=== PATIENT | male | born 1970 | race Caucasian/White ===

== ENCOUNTER → 2018-11-05 | Day surgery (SDC) | payer OTHER ==
[~2018-11-05] MED LIST: ALIGN4 MG PO; FENTANYL CITRATE/PF 100MCG/2 ML INJ ONE; HYDROCODONE/APAP 5MG-325MG TAB ONE; LIDOCAINE HCL 2% LOCAL INJ 5 ML SDV VIAL INJ ONE; MIDAZOLAM HCL 2 MG/2 ML VIAL ONE; MULTI-VITAMIN1 EACH PO; PROPOFOL IV EMULSION 10 MG/ML 50 ML VIAL ONE; metamucil PO
--- OUTSIDE RECORDS SUMMARY | 2018-11-05 05:11 | XMS REPORT | Summary of Care ---
Author Author [facility] Primary [facility] Primary [facility] Address Unknown Phone Unavailable Encounter SHILPI Correa(ADILENE) [id number] Date(s): 08/27/18 - 08/27/18 [facility] [address] [place] [address]- [phone] Discharge Disposition: Home or Self Care Attending Physician: Brenda Manriquez MD Vital Signs Most recent to 1 oldest [Reference Range]: Height 175.26 cm (08/27/18 8:37 AM) Temperature Oral 98.3 DegF [96.4-99.1 DegF] (08/27/18 8:37 AM) Blood Pressure 110/74 mmHg [90-140/60-90 mmHg] (08/27/18 8:37 AM) Peripheral Pulse 73 bpm Rate [60-100 bpm] (08/27/18 8:37 AM) Weight 75.909 kg (08/27/18 8:37 AM) Body Mass Index 24.71 m2 (08/27/18 8:37 AM) Problem List Condition Effective Dates Status Health Status Informant Depression(Confirmed Resolved ) Hemorrhoids(Confirme Active d) Hyperlipemia(Confirm Active ed) Colon Active polyps(Confirmed) Allergies, Adverse Reactions, Alerts Substance Reaction Severity Status NKDA Active Medications No Known Medications Results No data available for this section Immunizations Given and Recorded Vaccine Date Status Refusal Reason influenza virus vaccine, inactivated 03/24/15 Given Procedures Procedure Date Related Diagnosis Body Site Status Colonoscopy 12/03/15 Completed LASIK1 Completed 19538 Social History Social History Type Response Substance Abuse Use: None. Exercise Exercise duration: 45. Exercise frequency: 3-4 times/week. Exercise type: Weight lifting.1 Employment/School Status: Employed. 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 Other: Surrogate Decision Maker: Angelo Quijano (father) [phone]. Alcohol Current, Type Liquor. Frequency: 1-2 times per month. Smoking Status Never smoker; Exposure to Tobacco Smoke None; Cigarette Smoking Last 365 Days No; Reg Smoking Cessation Counseling No entered on: 08/27/18 1Cardio Assessment and Plan No data available for this section
--- OUTSIDE RECORDS SUMMARY | 2018-11-05 05:11 | XMS REPORT | Summary of Care ---
Author Author [facility] Primary [facility] Primary Care [facility] Address Unknown Phone Unavailable Encounter HQ Maryr_ronan(FIN) [id number] Date(s): 08/29/18 - 08/30/18 [facility] [address] [place] [address]- [phone] Vital Signs No data available for this section Problem List Condition Effective Dates Status Health Status Informant Depression(Confirmed Resolved ) Hemorrhoids(Confirme Active d) Hyperlipemia(Confirm Active ed) Colon Active polyps(Confirmed) Allergies, Adverse Reactions, Alerts Substance Reaction Severity Status NKDA Active Medications No data available for this section Results No data available for this section Immunizations Given and Recorded Vaccine Date Status Refusal Reason influenza virus vaccine, inactivated 03/24/15 Given Procedures Procedure Date Related Diagnosis Body Site Status Colonoscopy 12/03/15 Completed LASIK1 Completed 61416 Social History Social History Type Response Substance Abuse Use: None. Exercise Exercise duration: 45. Exercise frequency: 3-4 times/week. Exercise type: Weight lifting.1 Employment/School Status: Employed. 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 Other: Surrogate Decision Maker: Angelo Quijano (father) [phone]. Alcohol Current, Type Liquor. Frequency: 1-2 times per month. Smoking Status Never smoker; Exposure to Tobacco Smoke None; Cigarette Smoking Last 365 Days No; Reg Smoking Cessation Counseling No entered on: 08/27/18 1Cardio Assessment and Plan No data available for this section
--- OUTSIDE RECORDS SUMMARY | 2018-11-05 05:11 | XMS REPORT | Continuity of Care Document ---
Author Author [facility] Organization [facility] Address Unknown Phone Unavailable Care Team Providers Care Diesel Engine Specialist Name Role Phone MD Lb, Tio BUSTAMANTE Unavailable Insurance Providers Payer name Policy type / Coverage type Policy ID Covered republican ID Policy [place] UMR - UNITED HEALTHCARE OPTIONS (PPO) UMR - Budding [employer]ologist HEALTHCARE OPTIONS (PPO) Encounters Encounter Performer Location Date Office Visit Tio Asher MD [facility] Feb 11, 2014 Problems Problem Effective Dates Problem Status ROUTINE GENERAL MEDICAL EXAMINATION AT A HEALTH CARE FACILITY Feb 11, 2014 Active Procedures Date Description Comments Feb 11, 2014 smoking status Never smoker Medications Medication Instructions Start Date Status LIPITOR 10 MG TABS 1 tablet daily Feb 11, 2014 Active Vital Signs Date Description Test Result Feb 11, 2014 height E&M - 8302-2 HEIGHT 67 in Feb 11, 2014 weight E&M - 3141-9 WEIGHT 152 lb Feb 11, 2014 temperature E&M TEMPERATURE 97.3 deg f Feb 11, 2014 pulse rate E&M - 8867-4 PULSE RATE 66 /min Feb 11, 2014 blood pressure, systolic - 8480-6 BP SYSTOLIC 110 mm Hg Feb 11, 2014 blood pressure, diastolic - 8462-4 BP DIASTOLIC 70 mm Hg
--- OUTSIDE RECORDS SUMMARY | 2018-11-05 05:11 | XMS REPORT | Continuity of Care Document ---
Author Author [facility] Address Unknown Phone Unavailable Problems Problem Status Onset Date Classification Date Reported Comments Source N50.89 - OTHER SPECIFIED DISORDERS OF T Active 11/05/2017 [facility] ROUTINE GENERAL MEDICAL EXAMINATION AT A HEALTH CARE FACILITY Active 02/11/2014 Condition 02/11/2014 [facility] Depression Resolved Problem 09/01/2018 [facility],[id number] Hemorrhoids Active Problem 09/01/2018 [facility],[id number] Hyperlipemia Active Problem 09/01/2018 [facility],[id number] Colon polyps Active Problem 09/01/2018 [facility],[id number] Medications Medication Details Route Status Patient Instructions Ordering Provider Order Date Source multivitamin Daily, 0 Refill(s) Active 11/05/2017 [facility] Metamucil [facility] Fiber 3.4 gm, PO, TID, 0 Refill(s) Active 11/05/2017 [facility] Probiotic Formula oral capsule 1 cap, PO, Daily, 0 Refill(s) Active 11/05/2017 [facility] LIPITOR 10 MG TABS 1 tablet daily Active 02/11/2014 [facility] Allergies, Adverse Reactions, Alerts Substance Category Reaction Severity Reaction type Status Date Reported Comments Source Immunizations Immunization Date Given Site Status Last Updated Comments Source influenza virus vaccine, inactivated 03/24/2015 Right Deltoid completed [facility],[id number] Results Order Name Results Value Reference Range Date Interpretation Comments Source Scrotal/Testicle US Scrotal/Testicle US Study: SCROTAL ULTRASOUND WITH DOPPLER IMAGING Clinical Indication: - RIGHT TESTICULAR NODULE; Comparison: None FINDINGS: High-resolution imaging and color flow imaging was performed. Right hemiscrotum: The testicle is normal in size and demonstrates a normal homogeneous sonographic texture. No mass is evident. Appendix testis is noted. Epididymis contains a 3 mm cyst but is otherwise normal. The palpable lesion corresponds to an oval echogenic 5 mm nodule adjacent to the inferior testicle. There is normal testicular and epididymal blood flow. Small hydrocele is noted. Left hemiscrotum: The testicle is normal in size and demonstrates a normal homogeneous sonographic texture. No mass is evident. The visualized epididymis appears normal. There is normal testicular and epididymal blood flow. Small hydrocele is noted. IMPRESSION: 1. 5 mm solid nodule adjacent to the inferior right testicle, of indeterminate significance but likely benign. Urologic consult suggested. 2. Small bilateral hydroceles. 3. Otherwise, normal examination. SL: [id number] 11/05/2017 - - Read by: Waldemar Price MD Dictated Date/time: 11/06/17 07:33 Electronically Signed by: Waldemar Price MD 11/06/17 08:35 FINAL REPORT [facility] Chemistry CHOLESTEROL 134 mg/dl - 199 02/11/2014 [facility] Chemistry TRIGLYCERIDE 92 mg/dl - 149 02/11/2014 [facility] Chemistry HDL 47 mg/dl >=61 02/11/2014 [facility] Chemistry LDL 69 mg/dl - 99 02/11/2014 [facility] Chemistry SODIUM 137 MEQ/L mmol/L 135 - 145 02/11/2014 [facility] Chemistry POTASSIUM 4.5 MEQ/L mmol/L 3.5 - 5.1 02/11/2014 [facility] Chemistry CREATININE 0.8 mg/dL 0.5 - 1.4 02/11/2014 [facility] Chemistry BUN 14 mg/dL 7 - 22 02/11/2014 [facility] Chemistry BUN/CREAT 18 6 - 25 02/11/2014 [facility] Chemistry ALBUMIN 4.4 g/dL 3.5 - 5.0 02/11/2014 [facility] Chemistry CALCIUM 9.0 mg/dL 8.5 - 10.5 02/11/2014 [facility] Chemistry SGPT (ALT) 23 U/L 0 - 65 02/11/2014 [facility] Chemistry SGOT (AST) 16 U/L 0 - 37 02/11/2014 [facility] ALK PHOS 72 U/L 39 - 136 02/11/2014 [facility] Chemistry TSH 0.818 uIU/mL 0.360 - 3.740 02/11/2014 [facility] Chemistry TESTO, TOTAL 600 ng/dL 250 - 1100 02/11/2014 [facility] Chemistry TESTO, FREE 92.2 pg/mL 35.0 - 155.0 02/11/2014 [facility] Hematology HGB 16.0 g/dL 14.0 - 18.0 02/11/2014 [facility] Hematology HCT 46.0 % 42.0 - 54.0 02/11/2014 [facility] Hematology PLATELETS 324 K/CMM /mm3 133 - 450 02/11/2014 [facility] Vital Signs Vital Sign Value Date Comments Source BMI Calculated 24.71 08/27/2018 [facility] Weight 75.909 08/27/2018 [facility] Height 175.26 cm 08/27/2018 [facility] Heart Rate 73 08/27/2018 [facility] Temperature Oral (F) 98.3 F 08/27/2018 [facility] Systolic (mm Hg) 110 08/27/2018 [facility] Diastolic (mm Hg) 74 08/27/2018 [facility] Temperature Oral (F) 98.8 F 11/05/2017 [facility] Heart Rate 84 11/05/2017 [facility] Weight 75.818 11/05/2017 [facility] BMI Calculated 24.68 11/05/2017 [facility] Height 175.26 cm 11/05/2017 [facility] Systolic (mm Hg) 128 11/05/2017 [facility] Diastolic (mm Hg) 78 11/05/2017 [facility] Weight 77.045 06/22/2017 [facility] Height 175.26 cm 06/22/2017 [facility] BMI Calculated 25.08 06/22/2017 [facility] Systolic (mm Hg) 117 06/22/2017 [facility] Diastolic (mm Hg) 80 06/22/2017 [facility] Temperature Oral (F) 98.5 F 06/22/2017 [facility] Heart Rate 68 06/22/2017 [facility] Height 67 02/11/2014 [facility] Weight 152 02/11/2014 [facility] Temperature Oral (F) 97.3 F 02/11/2014 [facility] Heart Rate 66 02/11/2014 [facility] Systolic (mm Hg) 110 02/11/2014 [facility] Diastolic (mm Hg) 70 02/11/2014 [facility] Encounters Location Location Details Encounter Type Encounter Number Reason For Visit Attending Provider ADM Date DC Date Status Source [facility] Office Visit [id number] Riki Mcqueen MD 02/11/2014 02/11/2014 [facility] Lab Report [id number] Riki Mcqueen MD 02/11/2014 02/11/2014 Medical [facility] Outpatient [id number] RIKI MCQUEEN 03/24/2015 Active [facility] Outpatient [id number] RIKI MCQUEEN 05/31/2016 Active [facility] Outpatient [id number] AMANUEL WILLIMIGUEL 10/09/2016 Active [facility] Outpatient [id number] RIKI MCQUEEN 10/12/2016 Active [id number] [facility]2017 [facility] [id number] Riki Lb 06/22/2017 06/23/2017 Medical [facility] Outpatient [id number] RIKIHOWARD MCQUEEN 11/05/2017 Active [facility] [id number] [facility] 11/05/2017 11/06/2017 [facility] Outpatient Imaging [facility] [id number] [facility] 11/05/2017 11/06/2017 [id number] Outpatient [id number] Brenda Declan 08/27/2018 [facility] Outpatient [id number] Brenda Declan 08/27/2018 08/28/2018 [facility] Between Visit [id number] 08/29/2018 08/30/2018 [facility] Procedures Procedure Code Date Perfomer Comments Source Collection of venous blood by venipuncture 16968 06/22/2017 [facility] Colonoscopy [id number] 12/03/2015 [facility] LASIK<sup>1</sup> [id number] 1998 Medical [facility] LASIK<sup>1</sup> [id number] 1998 [id number]
--- OUTSIDE RECORDS SUMMARY | 2018-11-05 05:11 | XMS REPORT | Summary of Care ---
Author Author [facility] Address Unknown Phone Unavailable Encounter SHILPI Correa(ADILENE) [id number] Date(s): 06/22/17 - 06/22/17 [facility] [address], [address] [phone] Discharge Disposition: Home or Self Care Attending Physician: Tio Asher MD Vital Signs Most recent to 1 oldest [Reference Range]: Height 175.26 cm (06/22/17 9:18 AM) Temperature Oral 98.5 DegF [96.4-99.1 DegF] (06/22/17 9:18 AM) Blood Pressure 117/80 mmHg [90-140/60-90 mmHg] (06/22/17 9:18 AM) Peripheral Pulse 68 bpm Rate [60-100 bpm] (06/22/17 9:18 AM) Weight 77.045 kg (06/22/17 9:18 AM) Body Mass Index 25.08 m2 (06/22/17 9:18 AM) Problem List Condition Effective Dates Status [...] Procedure Date Related Diagnosis Body Site Status Collection of venous blood by venipuncture 06/22/17 Completed LASIK1 Completed 74556 Social History Social History Type Response Substance Abuse Use: None. Exercise Exercise duration: 45. Exercise frequency: 3-4 times/week. Exercise type: Weight lifting.1 Employment/School Status: Employed. 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 Other: Surrogate Decision Maker: Angelo Quijano (father) [phone]. Alcohol Current, Type Liquor. Frequency: 1-2 times per month. Smoking Status Never smoker; Exposure to Tobacco Smoke None; Cigarette Smoking Last 365 Days No; Reg Smoking Cessation Counseling No entered on: 06/22/17 1Cardio Assessment and Plan No data available for this section
--- OUTSIDE RECORDS SUMMARY | 2018-11-05 05:11 | XMS REPORT | Continuity of Care Document ---
Author Author [facility] Organization [facility] Address Unknown Phone Unavailable Care Team Providers Care Director Of Social Work Name Role Phone MD Asher Luis PP Unavailable Insurance Providers Payer name Policy type / Coverage type Policy ID Covered democrat ID Policy [place] UMR - UNITED HEALTHCARE OPTIONS (PPO) UMR - [address] HEALTHCARE OPTIONS (PPO) Encounters Encounter Performer Location Date Lab Report Tio Asher MD [facility] Feb 11, 2014 Problems Problem Effective Dates [...] - 8462-4 BP DIASTOLIC 70 mm Hg Results Date Description Test Name Value Reference Interpretation Status Feb 11, 2014 hemoglobin, blood HGB 16.0 g/dL 14.0-18.0 Feb 11, 2014 hematocrit, blood HCT 46.0 % 42.0-54.0 Feb 11, 2014 platelet count PLATELETS 324 K/CMM /mm3 133-450 Feb 11, 2014 cholesterol, serum CHOLESTEROL 134 mg/dl <=199 Feb 11, 2014 triglyceride, serum, fasting TRIGLYCERIDE 92 mg/dl <=149 Feb 11, 2014 HDL cholesterol, serum HDL 47 mg/dl >=61 Low Feb 11, 2014 LDL cholesterol, serum LDL 69 mg/dl <=99 Feb 11, 2014 sodium, serum SODIUM 137 MEQ/L mmol/L 135-145 Feb 11, 2014 potassium, serum POTASSIUM 4.5 MEQ/L mmol/L 3.5-5.1 Feb 11, 2014 creatinine, serum CREATININE 0.8 mg/dL 0.5-1.4 Feb 11, 2014 urea nitrogen, blood BUN 14 mg/dL 7-22 Feb 11, 2014 urea nitrogen/creatinine ratio, serum BUN/CREAT 18 null 6-25 Feb 11, 2014 albumin, serum ALBUMIN 4.4 g/dL 3.5-5.0 Feb 11, 2014 calcium, serum CALCIUM 9.0 mg/dL 8.5-10.5 Feb 11, 2014 alanine aminotransferase (SGPT), serum SGPT (ALT) 23 U/L 0-65 Feb 11, 2014 aspartate aminotransferase (SGOT), serum SGOT (AST) 16 U/L 0-37 Feb 11, 2014 alkaline phosphatase, serum ALK PHOS 72 U/L 39-136 Feb 11, 2014 thyroid stimulating hormone, serum TSH 0.818 uIU/mL 0.360-3.740 Feb 11, 2014 testosterone, total TESTO, TOTAL 600 ng/dL 250-1100 Feb 11, 2014 testosterone, serum, free TESTO, FREE 92.2 pg/mL 35.0-155.0
--- OUTSIDE RECORDS SUMMARY | 2018-11-05 05:11 | XMS REPORT | Summary of Care ---
Author Author [facility] Primary [facility] Address Unknown Phone Unavailable Encounter SHILPI Correa(ADILENE) [id number] Date(s): 11/05/17 - 11/05/17 [facility] [address], [address] [phone] Discharge Disposition: Home or Self Care Attending Physician: Tio Asher MD Vital Signs Most recent to 1 oldest [Reference Range]: Height 175.26 cm (11/05/17 2:39 PM) Temperature Oral 98.8 DegF [96.4-99.1 DegF] (11/05/17 2:39 PM) Blood Pressure 128/78 mmHg [90-140/60-90 mmHg] (11/05/17 2:39 PM) Peripheral Pulse 84 bpm Rate [60-100 bpm] (11/05/17 2:39 PM) Weight 75.818 kg (11/05/17 2:39 PM) Body Mass Index 24.68 m2 (11/05/17 2:39 PM) Problem List Condition Effective Dates Status Health Status Informant Depression(Confirmed Resolved ) Hemorrhoids(Confirme Active d) Hyperlipemia(Confirm Active ed) Colon Active polyps(Confirmed) Allergies, Adverse Reactions, Alerts Substance Reaction Severity Status NKDA Active Medications Metamucil [facility] Fiber 3.4 gm, PO, TID, 0 Refill(s) Start Date: 11/05/17 Status: Ordered multivitamin Daily, 0 Refill(s) Start Date: 11/05/17 Status: Ordered Probiotic Formula oral capsule 1 cap, PO, Daily, 0 Refill(s) Start Date: 11/05/17 Status: Ordered Results No data available for this section Immunizations Given and Recorded Vaccine Date Status Refusal Reason influenza virus vaccine, inactivated 03/24/15 Given Procedures Procedure Date Related Diagnosis Body Site Status LASIK1 Completed 13379 Social History Social History Type Response Substance Abuse Use: None. Exercise Exercise duration: 45. Exercise frequency: 3-4 times/week. Exercise type: Weight lifting.1 Employment/School Status: Employed. 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 Other: Surrogate Decision Maker: Angelo Quijano (father) [phone]. Alcohol Current, Type Liquor. Frequency: 1-2 times per month. Smoking Status Never smoker; Exposure to Tobacco Smoke None; Cigarette Smoking Last 365 Days No; Reg Smoking Cessation Counseling No entered on: 11/05/17 1Cardio Assessment and Plan No data available for this section
--- OUTSIDE RECORDS SUMMARY | 2018-11-05 05:11 | XMS REPORT | Summary of Care ---
Author Author [facility] Outpatient Imaging [facility] Organization [facility] Outpatient [facility] Address Unknown Phone Unavailable Encounter HQ Madeline(FIN) [id number] Date(s): 11/05/17 - 11/05/17 [facility] Outpatient Imaging [address] [address] Discharge Disposition: Home or Self Care Attending Physician: Tio Asher MD Vital Signs No data available for this [...] Related Diagnosis Body Site Status LASIK1 Completed 48362 Social History Social History Type Response Substance Abuse Use: None. Exercise Exercise duration: 45. Exercise frequency: 3-4 times/week. Exercise type: Weight lifting.1 Employment/School Status: Employed. 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 Alcohol Current, Type Liquor. Frequency: 1-2 times per month. Smoking Status Never smoker; Exposure to Tobacco Smoke None; Cigarette Smoking Last 365 Days No; Reg Smoking Cessation Counseling No entered on: 11/05/17 1Cardio Assessment and Plan No data available for this section
[2018-11-05 08:15] VITALS: BP 104/67
== END | disposition home or self-care (01) ==
LOC: OR 05:00
PROVIDERS: ATTEND Internal Medicine Gastroenterology
DX: Z12.11 Encounter for screening for malignant neoplasm of colon (principal); D12.0 Benign neoplasm of cecum; D12.2 Benign neoplasm of ascending colon; D12.3 Benign neoplasm of transverse colon; D12.4 Benign neoplasm of descending colon; K64.8 Other hemorrhoids; Z01.810 Encounter for preprocedural cardiovascular examination
CPT/HCPCS: 45385; 93005; J2001; J2250; J2704; 45378